=== PATIENT | female | born 1930 | race Caucasian/White ===

== ENCOUNTER 2016-10-05 21:38 | Emergency (ER) | payer MEDICARE ==
[~2016-10-05] VITALS: Ht 165.1 cm; Wt 99.0 kg
[~2016-10-05 21:38] MED LIST: AMOX875T2 PO; CALTTAB2 PO; CARD120C4 PO; DIGO0.12 PO; GLUC500C4 OR; HYDR12.56 PO; LOSA25TA31 PO; METO50 PO; NITR.2T TD; OMEG500C OR; POTA-243 PO; PROBCAP15 PO; PROT40TA PO; RIVA15 PO; SIMV20 PO; SPIR25TA PO; THER650C OR
[2016-10-05 21:42] VITALS: BP 173/79; PULSE 109; RESP 16; TEMP 99.4; O2SAT 97
[2016-11-10] MEDS ORDERED: PROBCAP15 PO (13:19)
[2016-11-10] MEDS ORDERED: RAMI10CA PO (13:19)
[2016-11-10] MEDS ORDERED: POTA10TA8 PO (13:19)
[2016-11-10] MEDS ORDERED: VITA500T PO (13:19)
[2016-11-10] MEDS ORDERED: REFR0.5D4 EACH EYE (13:19)
[2016-11-10] MEDS ORDERED: METO50TA PO (13:19)
[2016-11-10] MEDS ORDERED: CALTTAB PO (13:19)
[2016-11-10] MEDS ORDERED: OMEG100010 PO (13:19)
[2016-11-10] MEDS ORDERED: SIMV20TA PO (13:19)
[2016-11-10] MEDS ORDERED: XARE15TA PO (13:19)
[2016-11-10] MEDS ORDERED: LOSA25TA PO (13:19)
[2016-11-10] MEDS ORDERED: MULT-6 PO (13:19)
[2016-11-10] MEDS ORDERED: GLUCTAB6 PO (13:19)
[2016-11-10] MEDS ORDERED: SPIR25TA PO (13:19)
== END 2016-10-06 00:43 | disposition left against medical advice (07) ==
LOC: NED 21:38
DX: R06.02 Shortness of breath (principal)
CPT/HCPCS: 99281

== ENCOUNTER → 2017-02-14 | Outpatient (CLI) | payer MEDICARE ==
[~2017-02-14] MED LIST changes: -AMOX875T2 PO; +CALTTAB PO; -CALTTAB2 PO; -CARD120C4 PO; -DIGO0.12 PO; -GLUC500C4 OR; +GLUCTAB6 PO; -HYDR12.56 PO; +LOSA25TA PO; -LOSA25TA31 PO; -METO50 PO; +METO50TA PO; +MULT-6 PO; -NITR.2T TD; +OMEG100010 PO; -OMEG500C OR; -POTA-243 PO; +POTA10TA8 PO; -PROT40TA PO; +RAMI10CA PO; +REFR0.5D4 EACH EYE; -RIVA15 PO; -SIMV20 PO; +SIMV20TA PO; -THER650C OR; +VITA500T PO; +XARE15TA PO
[2017-02-14 10:30] LABS: AUTOMATED NEUTROPHIL # 3.8 TH/MM3 (1.8-7.7); BASOPHIL # 0.1 TH/MM3 (0-0.2); BASOPHIL % 0.9 % (0.0-2.0); EOSINOPHIL # 0.2 TH/MM3 (0-0.4); HEMATOCRIT 36.8 % (35.0-46.0); HEMO FLAGS DIFF FINAL; LYMPH % 23.2 % (9.0-44.0); LYMPHOCYTE # 1.4 TH/MM3 (1.0-4.8); MEAN CELL VOLUME 92.8 FL (80.0-100.0); MEAN CORPUSCULAR HEMOGLOBIN 31.9 PG (27.0-34.0); MEAN CORPUSCULAR HGB CONC 34.4 % (32.0-36.0); MONO % 9.7 % (0.0-8.0); NEUT % 63.2 % (16.0-70.0); PLATELET COUNT 186 TH/MM3 (150-450); RED BLOOD COUNT 3.97 MIL/MM3 (4.00-5.30); RED CELL DISTRIBUTION WIDTH 13.7 % (11.6-17.2)
[2017-02-14 10:51] LABS: ALT (GPT) 31 U/L (10-53); ANION GAP 8 MEQ/L (5-15); AST (GOT) 22 U/L (15-37); BICARBONATE 27.7 MEQ/L (21.0-32.0); BLOOD UREA NITROGEN 22 MG/DL (7-18); CHLORIDE 104 MEQ/L (98-107); GLOMERULAR FILTRATION RATE 45 ML/MIN (>89); GLUCOSE,FASTING 155 MG/DL (74-99); SODIUM (NA) 140 MEQ/L (136-145)
[2017-02-14 11:00] LABS: ALKALINE PHOSPHATASE 69 U/L (45-117); HDL CHOLESTEROL 22.9 MG/DL (40.0-60.0); LDL CHOLESTEROL 10 MG/DL (0-99); TOTAL BILIRUBIN ADULT 0.6 MG/DL (0.2-1.0)
[2017-02-14 16:31] LABS: HEMOGLOBIN A1b 2.4 %; HEMOGLOBIN Ao 81.6 %; HEMOGLOBIN LA1C 2.8 %
== END ==
LOC: CLAB 09:56
PROVIDERS: ATTEND Family Medicine
DX: J06.9 Acute upper respiratory infection, unspecified (principal); I50.9 Heart failure, unspecified; E78.5 Hyperlipidemia, unspecified; K57.32 Diverticulitis of large intestine without perforation or abscess without bleeding; I12.9 Hypertensive chronic kidney disease with stage 1 through stage 4 chronic kidney disease, or unspecified chronic kidney disease; N18.3 Chronic kidney disease, stage 3 (moderate); G47.30 Sleep apnea, unspecified; R73.01 Impaired fasting glucose; Z95.0 Presence of cardiac pacemaker; Z68.34 Body mass index [BMI] 34.0-34.9, adult
CPT/HCPCS: 36415; 80053; 80061; 83036; 84443; 85025

== ENCOUNTER → 2017-06-27 | Outpatient (CLI) | payer MEDICARE ==
[2017-06-27 09:33] LABS: HEMATOCRIT 37.9 % (35.0-46.0); HEMOGLOBIN 12.9 GM/DL (11.6-15.3); MEAN CELL VOLUME 95.4 FL (80.0-100.0); MEAN CORPUSCULAR HEMOGLOBIN 32.6 PG (27.0-34.0); MEAN CORPUSCULAR HGB CONC 34.1 % (32.0-36.0); MEAN PLATELET VOLUME 8.5 FL (7.0-11.0); PLATELET COUNT 200 TH/MM3 (150-450); RED BLOOD COUNT 3.97 MIL/MM3 (4.00-5.30); WHITE BLOOD COUNT 6.6 TH/MM3 (4.0-11.0)
[2017-06-27 10:11] LABS: ALBUMIN 3.9 GM/DL (3.4-5.0); AST (GOT) 19 U/L (15-37); BICARBONATE 22.8 MEQ/L (21.0-32.0); BLOOD UREA NITROGEN 24 MG/DL (7-18); CALCIUM 8.6 MG/DL (8.5-10.1); CHLORIDE 103 MEQ/L (98-107); CHOLESTEROL 75 MG/DL (120-200); CREATININE 1.14 MG/DL (0.50-1.00); GLOMERULAR FILTRATION RATE 45 ML/MIN (>89); GLUCOSE,FASTING 146 MG/DL (74-99); SODIUM (NA) 137 MEQ/L (136-145); TRIGLYCERIDES 238 MG/DL (42-150)
[2017-06-27 10:23] LABS: ALKALINE PHOSPHATASE 73 U/L (45-117); ALT (GPT) 25 U/L (10-53); CHOLESTEROL/ HDL RATIO 2.95 RATIO; HDL CHOLESTEROL 25.4 MG/DL (40.0-60.0); LDL CHOLESTEROL 2 MG/DL (0-99); TOTAL BILIRUBIN ADULT 0.8 MG/DL (0.2-1.0); TOTAL PROTEIN 7.3 GM/DL (6.4-8.2)
[2017-06-27 16:41] LABS: HEMOGLOBIN A1C 7.2 % (4.3-6.0)
== END ==
LOC: CLAB 08:51
PROVIDERS: ATTEND Family Medicine
DX: I12.9 Hypertensive chronic kidney disease with stage 1 through stage 4 chronic kidney disease, or unspecified chronic kidney disease (principal); N18.3 Chronic kidney disease, stage 3 (moderate); I50.9 Heart failure, unspecified; E78.5 Hyperlipidemia, unspecified; K57.32 Diverticulitis of large intestine without perforation or abscess without bleeding; R73.01 Impaired fasting glucose; G47.30 Sleep apnea, unspecified; Z95.0 Presence of cardiac pacemaker; Z68.34 Body mass index [BMI] 34.0-34.9, adult
CPT/HCPCS: 36415; 80053; 80061; 83036; 84443; 85027

== ENCOUNTER → 2017-11-07 | Outpatient (CLI) | payer MEDICARE ==
[2017-11-07 08:51] LABS: HEMATOCRIT 36.5 % (35.0-46.0); MEAN CELL VOLUME 92.4 FL (80.0-100.0); MEAN CORPUSCULAR HGB CONC 35.7 % (32.0-36.0); MEAN PLATELET VOLUME 8.1 FL (7.0-11.0); PLATELET COUNT 217 TH/MM3 (150-450); RED BLOOD COUNT 3.95 MIL/MM3 (4.00-5.30); RED CELL DISTRIBUTION WIDTH 13.8 % (11.6-17.2)
[2017-11-07 09:07] LABS: ALBUMIN 3.8 GM/DL (3.4-5.0); ALT (GPT) 31 U/L (10-53); AST (GOT) 22 U/L (15-37); BICARBONATE 29.5 MEQ/L (21.0-32.0); BLOOD UREA NITROGEN 18 MG/DL (7-18); CALCIUM 8.6 MG/DL (8.5-10.1); CHLORIDE 103 MEQ/L (98-107); CHOLESTEROL 71 MG/DL (120-200); CREATININE 1.11 MG/DL (0.50-1.00); GLOMERULAR FILTRATION RATE 47 ML/MIN (>89); GLUCOSE,FASTING 196 MG/DL (74-99); SODIUM (NA) 140 MEQ/L (136-145)
[2017-11-07 09:17] LABS: ALKALINE PHOSPHATASE 81 U/L (45-117); CHOLESTEROL/ HDL RATIO 2.79 RATIO; HDL CHOLESTEROL 25.4 MG/DL (40.0-60.0); LDL CHOLESTEROL 5 MG/DL (0-99); TOTAL BILIRUBIN ADULT 0.4 MG/DL (0.2-1.0); TOTAL PROTEIN 6.9 GM/DL (6.4-8.2); TRIGLYCERIDES 203 MG/DL (42-150)
[2017-11-07 15:57] LABS: HEMOGLOBIN A1C 8.4 % (4.3-6.0)
== END ==
LOC: CLAB 08:15
PROVIDERS: ATTEND Family Medicine
DX: E78.5 Hyperlipidemia, unspecified (principal); N18.3 Chronic kidney disease, stage 3 (moderate); I13.0 Hypertensive heart and chronic kidney disease with heart failure and stage 1 through stage 4 chronic kidney disease, or unspecified chronic kidney disease; I50.9 Heart failure, unspecified; K57.32 Diverticulitis of large intestine without perforation or abscess without bleeding; R73.01 Impaired fasting glucose; G47.30 Sleep apnea, unspecified; Z68.34 Body mass index [BMI] 34.0-34.9, adult; Z95.0 Presence of cardiac pacemaker
CPT/HCPCS: 36415; 80053; 80061; 83036; 84443; 85027